=== PATIENT | female | born 1955 | race Caucasian/White ===

== ENCOUNTER 2017-01-28 18:35 | Inpatient (IN) ==
[~2017-01-28 18:35] MED LIST: LEXISCAN ONE
--- NOTE | 2017-01-28 19:44 | PROVIDER DOCUMENTATION ---
HPI-Chest Pain - General Chief Complaint: Chest Pain Stated Complaint: chest pain Time Seen by Provider: 01/28/17 20:00 Source: patient Allergies/Adverse Reactions: Patient Allergies Allergy/AdvReac Type Severity Reaction Status Date / Time Sulfa (Sulfonamide Allergy Mild SWELLING Verified 01/28/17 19:18 Antibiotics) haloperidol [From Haldol] AdvReac Severe Unknown Verified 01/28/17 19:18 ibuprofen AdvReac Mild NAUSEA Verified 01/28/17 19:18 Home Medications: Home Medication List Medication Instructions Recorded Confirmed Last Taken Type Benztropine [Cogentin] 1 mg PO TID #0 tablet MDD 3 mg 12/29/14 01/18/17 08:00 Rx Clotrimazole 1% Cream [Lotrimin 1% 1 applicatn TOP BID #0 12/29/14 01/18/17 08:00 Rx Cream] Furosemide 20 mg PO DAILY #0 MDD 20 mg 12/29/14 01/18/17 01/18/17 08:00 Rx 20mg Fluticasone 50 Mcg Nasal [place] 50 mcg INH DAILY 02/17/16 01/18/17 01/18/17 08: 00 History [Flonase] Losartan Potassium 100 mg PO DAILY MDD 100 mg 02/17/16 01/18/17 01/18/17 08:00 History 100mg Metformin HCl 1,000 mg PO BID MDD 1000 mg 02/17/16 01/18/17 01/18/17 08:00 History Metoprolol [Lopressor] 50 mg PO BID MDD 100 mg 02/17/16 01/18/17 01/18/17 08:00 History Duloxetine HCl [Cymbalta] 60 mg PO DAILY 12/18/16 01/18/17 01/18/17 08:00 History Fluphenazine [Prolixin] 2.5 mg PO HS 12/18/16 01/18/17 01/17/17 20:00 History Gemfibrozil 600 mg PO BID AC 12/18/16 01/18/17 01/18/17 08:00 History Loratadine [Children's 10 mg PO DAILY 12/18/16 01/18/17 01/18/17 08:00 History Clear-Atadine] 10mg Mirtazapine [Remeron] 30 mg PO QHS 12/18/16 01/18/17 01/17/17 20:00 History Pantoprazole Sodium 40 mg PO DAILY@0700 12/18/16 01/18/17 01/18/17 08:00 History - History of Present Illness-CP Nature of Presenting Problem: Patient is a 61 yrs old lady who has come with chest pain . She states that she has been having pain for a little while. It started in the middle of her chest and radiating to her left arm . It is 6-7/10 in intensity . Aggravated by moving . No particular relieving factor. Associated with some shortness of breath and headache as well.No N/V . No abd pain . No dizziness or lightheadedness. No other particular complaints. Location: reports: substernal, central Chest Pain Radiation: reports: arms Quality of Pain: reports: dull, pressure Severity in ED: moderate Onset/Duration: abrupt, 1-3 hours ago Timing: improving Context/Activities at Onset: reports: light activity Modifying Factors: improves with: analgesics Associated Symptoms: reports: headache, shortness of breath Review of Systems - Adult - REVIEW OF SYSTEMS - ADULT Constitutional: reports: no symptoms reported Eyes: reports: no symptoms reported Ears, Nose, Mouth & Throat: reports: no symptoms reported Cardiovascular: reports: see HPI Respiratory: reports: no symptoms reported Gastrointestinal: reports: no symptoms reported Genitourinary: reports: no symptoms reported Musculoskeletal: reports: no symptoms reported Integumentary: reports: no symptoms reported Neurological: reports: no symptoms reported Psychiatric: reports: no symptoms reported Endocrine: reports: no symptoms reported Past History - Adult - PAST MEDICAL HISTORY-ADULT Review of Records: reports: Old Records Reviewed, Nursing Assessment Review Major Childhood Illnesses: reports: denies history Cardiovascular: reports: HTN, SC Respiratory: reports: asthma Gastrointestinal: reports: denies history Obstetrical/Gynecological: reports: denies history Genitourinary: reports: denies history Musculoskeletal: reports: denies history Neurological: reports: CVA Psychiatric: reports: anxiety Endocrine/Immune: reports: cancer (BREAST CANCER), Diabetes, thyroid disorder Other Conditions: reports: denies history - PRIOR SURGERIES/PROCEDURES Surgical/Procedure History: reports: cholecystectomy, hysterectomy - IMMUNIZATION STATUS Childhood Immunizations: See Nurse Assessment Flu Vaccine: See Nurse Assessment - FAMILY HISTORY Family History: reviewed, not pertinent - SOCIAL HISTORY Smoking: denies Substance Use: none/never Alcohol Use Frequency: never Physical Exam-General - CONSTITUTIONAL General Appearance: mild distress - EYES Eyes: PERRL/EOMI - HEAD, EARS, NOSE, MOUTH & THROAT HENMT: normocephalic/atraumatic, moist mucous membranes - NECK Neck: non-tender, full range of motion - RESPIRATORY Respiratory: chest non-tender, lungs clear, normal breath sounds - CARDIOVASCULAR Cardiovascular: normal peripheral pulses, regular rate, rhythm, no edema - GASTROINTESTINAL (ABDOMEN) Abdominal Exam: non tender, soft, no organomegaly - LYMPHATIC Lymphatic: no adenopathy - MUSCULOSKELETAL Back Exam: normal inspection Extremity: normal range of motion - SKIN Integumentary: normal color, warm/dry - NEUROLOGIC Neurologic: grossly normal, no motor/sensory deficits - PSYCHIATRIC Psych/Mental Status: normal mood/affect, normal thought content, normal thought process, oriented x 3 Progress - PLAN OF CARE/RESULTS Progress/Plan/Lab Results: Vital Signs - 8 hr 01/28/17 18:35 01/28/17 20:09 Temperature 97.1 F L Pulse Rate 88 84 Respiratory Rate 18 24 Blood Pressure 153/109 159/97 O2 Sat by Pulse Oximetry 96 97 Laboratory Results - last 24 hr 01/28/17 01/28/17 01/28/17 19:00 19:00 19:00 WBC 8.26 RBC 3.91 L Hgb 11.7 L Hct 33.6 L MCV 85.9 MCH 29.9 MCHC 34.8 RDW Std Deviation 13.7 Plt Count 267 MPV 11.8 H Immature Gran % (Auto) 0.1 Neut % (Auto) 48.2 Lymph % (Auto) 41.4 [place] % (Auto) 7.7 Eos % (Auto) 2.2 Baso % (Auto) 0.4 Immature Gran # (Auto) 0.01 Neut # (Auto) 3.98 Lymph # (Auto) 3.42 H [place] # (Auto) 0.64 H Eos # (Auto) 0.18 Baso # (Auto) 0.03 Sodium 128 L Potassium 4.9 Chloride 92 L Carbon Dioxide 21 L Anion Gap 16 BUN 22 Creatinine 0.7 Estimated GFR/1.73 m2 > 60 BUN/Creatinine Ratio 31 Glucose 181 H Calculated Osmolality 265 Calcium 9.3 Total Bilirubin 0.20 AST 46 H ALT 27 Alkaline Phosphatase 79 Troponin T < 0.010 Trc-S-Xlhmjasnnqu Pept Total Protein 6.8 Albumin 4.3 Globulin 3.0 Albumin/Globulin Ratio 2.0 01/28/17 19:00 WBC RBC Hgb Hct MCV MCH MCHC RDW Std Deviation Plt Count MPV Immature Gran % (Auto) Neut % (Auto) Lymph % (Auto) [place] % (Auto) Eos % (Auto) Baso % (Auto) Immature Gran # (Auto) Neut # (Auto) Lymph # (Auto) [place] # (Auto) Eos # (Auto) Baso # (Auto) Sodium Potassium Chloride Carbon Dioxide Anion Gap BUN Creatinine Estimated GFR/1.73 m2 BUN/Creatinine Ratio Glucose Calculated Osmolality Calcium Total Bilirubin AST ALT Alkaline Phosphatase Troponin T [id number] Pept 63 Total Protein Albumin Globulin Albumin/Globulin Ratio Orders Category Date Time Status Fluid restrictions ____ ml/day DIRECTED Care 01/28/17 22:15 Active BNP [PRO B-NATRIURETIC PEPTIDE] Stat Lab 01/28/17 19:00 Completed CBC WITH ELECTRONIC DIFF [HEME] Stat Lab 01/28/17 19:00 Completed CMP [COMPREHENSIVE METABOLIC PANEL] [CHEM] Stat Lab 01/28/17 19:00 Completed TROPONIN T Stat Lab 01/28/17 19:00 Completed UR OSMOLALITY [CHEM] Stat Lab 01/28/17 19:49 Received UR POTASSIUM [URCHEM] Stat Lab 01/28/17 22:12 Uncollected EKG [EKG] Stat Ther 01/28/17 19:42 Draft No acute finding on EKG. Troponin and BNP wnl . Due to her history of CAD , she needs to get further cardiac work up before discharge. Also has low Na. Getting Urine electrolytes.Putting her on Fluid restriction for now. Discussed with Dr. Mccain the Hospitalist and he has kindly agreed for admission. Result Diagrams: 01/28/17 19:00 01/28/17 19:00 Departure - Departure Date of Disposition Decision: 01/28/17 Time of Disposition Decision: 22:28 DIAGNOSIS: Chest pain, Hyponatremia Disposition: ADMITTED INPATIENT 09 Certified Medical Emergency: Emergent Condition: Stable Referrals and Follow-Ups: None,PCP [Primary Care Provider] - - Critical Care Note This patient required my direct & personal management of CC.: No Attestation - Physician/ KELLE Attestation Patient care was provided by Advanced Practice Provider:: No The physician spent face to face time with patient:: Yes Advanced Practice Provider documentation review:: Supervising physician onsite and consulted in the evaluation and care of this patient. The physician did have a face to face encounter with the patient.
[2017-01-28 20:21] LABS: MANUAL DIFF NEEDED? NO
[2017-01-28 20:26] LABS: BASO% 0.4 % (0.0-0.8); EOS# 0.18 X1000 (0.0-0.7); EOS% 2.2 % (0.0-10.0); HEMATOCRIT 33.6 % (37.0-47.0); HEMOGLOBIN 11.7 g/dL (12.0-16.0); IMM GRAN# 0.01 X1000 (0.0-0.04); IMM GRAN% 0.1 % (0.0-0.5); LYMPH# 3.42 X1000 (1.2-3.4); LYMPH% 41.4 % (20.5-51.1); MCH 29.9 PG (27-31); MCHC 34.8 g/dL (33-37); MCV 85.9 FL (81-99); MONO# 0.64 X1000 (0.11-0.59); MONO% 7.7 % (1.7-9.3); MPV 11.8 FL (7.4-10.4); NEUT% 48.2 % (42.2-75.2); PLT 267 X1000 (130-400); RBC 3.91 XMIL (4.2-5.4)
[2017-01-28 20:38] LABS: AGAP 16; ALBUMIN 4.3 g/dL (3.5-5.0); ALKALINE PHOSPHATASE 79 U/L (32-104); BUN 22 mg/dL (8-22); CALCIUM 9.3 mg/dL (8.8-10.2); CHLORIDE 92 mmol/L (98-107); COSMO 265; GOT 46 U/L (10-30); GPT 27 U/L (10-36); POTASSIUM 4.9 mmol/L (3.5-5.1); SODIUM 128 mmol/L (136-145); TCO2 21 mmol/L (25-35); TOTAL PROTEIN 6.8 g/dL (6.3-8.3)
--- NOTE | 2017-01-28 22:15 | EKG Report ---
Test Performed on : 01/28/2017 7:59:12 PM Test Reason : CP Blood Pressure : / mmHG Vent. Rate : 085 BPM Atrial Rate : 085 BPM P-R Int : 196 ms QRS Dur : 084 ms QT Int : 368 ms P-R-T Axes : 031 -15 049 degrees QTc Int : 437 ms Normal sinus rhythm. Inferior infarct , age undetermined Anteroseptal infarct (cited on or before 23-JAN-2017) Abnormal ECG When compared with ECG of 28-JAN-2017 15:46, (Unconfirmed) Inferior infarct is now present Questionable change in initial forces of Anterior leads Unconfirmed Result
[2017-01-28] MEDS ORDERED: MORPHINE IV PRN (22:39)
--- NOTE | 2017-01-29 09:08 | HISTORY AND PHYSICAL ---
PRIMARY CARE PHYSICIAN: Dr. Jolene Aguiar. CHIEF COMPLAINT: Chest pain. HISTORY OF PRESENTING ILLNESS: This is a 61-year-old female who presents to [facility] ER with complaints of chest pain substernal that radiated to her left arm. Worse with movement. States she has felt short of breath and also had a headache. Workup in the ER showed cardiac enzymes x1 set was negative. Sodium was 128 with a chloride of 92. EKG showed normal sinus rhythm at 85 but she was admitted for further evaluation and treatment. PAST MEDICAL HISTORY: 1. Schizoaffective disorder, bipolar. 2. Posttraumatic stress disorder. 3. Diabetes type 2. 4. Atrial fibrillation. 5. Diabetic neuropathy. 6. Congestive heart failure. 7. GERD. 8. A congenital heart defect. 9. Left breast cancer. 10. Hypertension. 11. Sleep apnea. PAST SURGICAL HISTORY: 1. Left breast lumpectomy. 2. Hysterectomy. 3. Cholecystectomy. 4. Melanoma removed from her left biceps. FAMILY HISTORY: 1. Hypertension. 2. Diabetes. 3. Heart disease. 4. Cancer. SOCIAL HISTORY: She currently resides at a snf in [place]. Denied any tobacco, alcohol, or illicit drug use. ALLERGIES: 1. Sulfa. 2. Haloperidol. 3. Ibuprofen. HOME MEDICATIONS: A current list will be obtained and we will restart as appropriate. LABORATORY DATA: Showed a white blood cell count of 8.26, hemoglobin 11.7, hematocrit 33.6, platelets 267,000. Sodium 128, potassium 4.9, chloride 92, CO2 21, BUN of 22 with a creatinine of 0.7, glucose of 181. A troponin of less than 0.010, proBNP of 63. EKG showed normal sinus rhythm at 85. REVIEW OF SYSTEMS: She was positive for chest pain radiating to her left arm, shortness of breath and a headache. Otherwise negative review of systems. PHYSICAL EXAMINATION: On arrival, she had a temperature of 97.1 degrees, a pulse of 88, respirations 18, blood pressure 153/109, saturating 96% on room air. GENERAL: This is a 61-year-old female who is lying in the bed and answers questions appropriately. HEENT: Normocephalic and atraumatic. The pupils are equal, round, reactive to light. The extraocular movements are intact. The oropharynx and nares are clear. NECK: Supple. LUNGS: Clear to auscultation bilaterally with equal lung expansion and chest wall movement. HEART: With regular rate and rhythm. No murmurs, rubs, or gallops. ABDOMEN: Soft, nontender, nondistended. Bowel sounds are present x4 quadrants. EXTREMITIES: No clubbing, cyanosis, or edema. NEUROLOGICAL: The cranial nerves 2-12 appear grossly intact. ASSESSMENT: 1. Chest pain. 2. Hyponatremia. 3. Hypertension. 4. Diabetes type 2. PLAN: She was admitted to the medical unit at [facility], placed on telemetry. Placed on a 1200 mL fluid restriction. We are checking a CBC, CMP, CK profile and a troponin and a thyroid this morning. We are also checking a urine osmolality and urine potassium. She was given morphine 2 mg IV q.2 hours p[address]r.n. We will place on a diabetic diet. Dictated by KASSANDRA Kothari for Dell Adkins MD cc: KASSANDRA Kothari MD Faye Wilson, MD
[2017-01-29 09:30] LABS: HEMATOCRIT 33.6 % (37.0-47.0); HEMOGLOBIN 11.7 g/dL (12.0-16.0); MCH 29.8 PG (27-31); MCHC 34.8 g/dL (33-37); MCV 85.5 FL (81-99); RBC 3.93 XMIL (4.2-5.4)
[2017-01-29 09:50] LABS: AGAP 15; ALBUMIN 4.1 g/dL (3.5-5.0); ALKALINE PHOSPHATASE 72 U/L (32-104); BUN 21 mg/dL (8-22); CALCIUM 9.6 mg/dL (8.8-10.2); CHLORIDE 98 mmol/L (98-107); COSMO 278; GOT 56 U/L (10-30); GPT 28 U/L (10-36); MAGNESIUM 1.6 mg/dL (1.5-2.7); POTASSIUM 4.9 mmol/L (3.5-5.1); SODIUM 135 mmol/L (136-145); TCO2 22 mmol/L (25-35); TOTAL PROTEIN 7.2 g/dL (6.3-8.3)
[2017-01-29] MEDS ORDERED: APRESOLINE IV PRN (13:17)
[2017-01-29] MEDS: COZAAR PO SCH (13:31)
[2017-01-29] MEDS: MORPHINE IV PRN ×3 (13:32→21:22)
--- NOTE | 2017-01-29 13:47 | EKG Report ---
Test Performed on : 01/29/2017 1:21:59 PM Test Reason : chest pain Blood Pressure : / mmHG Vent. Rate : 093 BPM Atrial Rate : 093 BPM P-R Int : 188 ms QRS Dur : 092 ms QT Int : 352 ms P-R-T Axes : 000 -24 149 degrees QTc Int : 437 ms Normal sinus rhythm. Inferior infarct (cited on or before 28-JAN-2017) Anterior infarct (cited on or before 23-JAN-2017) Abnormal ECG When compared with ECG of 28-JAN-2017 19:59, Nonspecific T wave abnormality now evident in Inferior leads Confirmed by Jonas Galvan MD ([id number]) on 02/07/2017 6:54:28 PM
[2017-01-29] MEDS: HUMALOG DOSE (PARKWAY) SUBQ SCH (21:09)
[2017-01-30] MEDS: MORPHINE IV PRN (01:42)
--- NOTE | 2017-01-30 03:40 | PROGRESS NOTE ---
DATE: 01/28/2017 ADDENDUM: Plan of care discussed with nurse practitioner. Please see full note. Patient presented with chest pain. She has no idea when her last stress test was. Pain radiated to her left shoulder. Currently has resolved. We will complete rule out for OR and will consider stress testing. cc: Dell Adkins MD
[2017-01-30] MEDS: HUMALOG DOSE (PARKWAY) SUBQ SCH ×4 (06:55→21:19)
[2017-01-30] MEDS: COZAAR PO SCH (08:27)
[2017-01-30] MEDS ORDERED: ZOFRAN IV PRN ×2 (11:33→11:37)
[2017-01-30] MEDS ORDERED: CYMBALTA PO ONE (11:38)
[2017-01-30] MEDS ORDERED: PHENERGAN IV ONE (11:59)
[2017-01-30] MEDS ORDERED: SODIUM CHLORIDE 0.9% INJ ONE (11:59)
[2017-01-30] MEDS: TYLENOL PO PRN (12:56)
[2017-01-30] MEDS: COGENTIN PO SCH ×2 (12:57→17:02)
--- NOTE | 2017-01-30 13:52 | EKG Report ---
Test Performed on : 01/30/2017 11:24:59 AM Test Reason : cp Blood Pressure : / mmHG Vent. Rate : 084 BPM Atrial Rate : 084 BPM P-R Int : 192 ms QRS Dur : 094 ms QT Int : 378 ms P-R-T Axes : 044 -04 050 degrees QTc Int : 446 ms Normal sinus rhythm. Possible Anterior infarct (cited on or before 23-JAN-2017) Abnormal ECG When compared with ECG of 29-JAN-2017 13:21, (Unconfirmed) Criteria for Inferior infarct are no longer present Nonspecific T wave abnormality no longer evident in Inferior leads Confirmed by Jonas Galvan MD ([id number]) on 02/07/2017 6:54:46 PM
--- NOTE | 2017-01-30 15:45 | PROGRESS NOTE ---
DATE: 01/30/2017 SUBJECTIVE: The patient has no focal complaints. OBJECTIVE: Vital signs: Blood pressure 182/83, heart rate of 92, respiratory rate 18, temperature 97.5 degrees, 94% on room air. Cardiovascular: Regular rate and rhythm, but tachycardic. Pulmonary: Bilateral breath sounds. Clear to auscultation. Gastrointestinal: Soft, nontender, nondistended. Bowel sounds are positive. LABORATORY DATA: Nothing new today. Sugar was 212. PROBLEM LIST: 1. Chest pain is very atypical, but she also has a complicated psychiatric history, so I am not sure if she is elaborating her chest pain. She does have risk factors, atrial fibrillation, type 2 diabetes, CHF by report and a "hole" in her heart. So, we attempted to do a stress test today, but she had eaten and taken coffee, so we were unable to complete it. So, we did a resting, which I think was unremarkable. I am waiting. She had a nuclear stress test in 2012, which was negative. So, I am going to get an echo and cardiology opinion. If they feel she is stable for discharge and outpatient follow up, we will pursue that. If not, then we will have to keep her here until to get the stress portion of her stress test because of the field tech is not available tomorrow. 2. Diabetes. Continue regular medications. 3. Schizoaffective disorder. She is in the process of being evaluated by Jean Villatoro for her psychiatric issues. We will release her back, once we have completed her cardiac workup. cc: Jose Hooker MD
[2017-01-30] MEDS: GLUCOPHAGE PO SCH (17:01)
[2017-01-30] MEDS: LOPID PO SCH (17:02)
--- NOTE | 2017-01-30 19:51 | CONSULTATION ---
DATE OF CONSULTATION: 01/30/2017 IMPRESSION: 1. Chest pain for extended duration with normal cardiac enzymes. Chest discomfort, predominantly atypical for myocardial ischemia and overall clinical presentation. Very atypical for myocardial ischemia. 2. Reported history of some sort of intracardiac septal defect. Details not available. 3. Schizoaffective disorder. 4. Type 2 diabetes mellitus with associated diabetic neuropathy. 5. Previous atrial fibrillation. 6. Gastroesophageal reflux disease. 7. Hypertension. 8. Status post left breast lumpectomy for breast cancer. 9. Sleep apnea. RECOMMENDATIONS: 1. Follow through with pharmacologic myocardial perfusion imaging. 2. Echocardiography. 3. Alternative diagnostic evaluation might also be achieved with cardiac/coronary CT angiography. HISTORY: This 61-year-old, white female with past history of chronic recurrent chest pain, schizoaffective disorder, type 2 diabetes mellitus, hypertension, and "hole in the heart" was admitted on transfer from [facility] for further evaluation of chest pain. She describes near constant dull/heaviness in the left chest. Discomfort can last several hours at a time and then comes and goes. Her current episode began Sunday and has not stopped. Cardiac enzymes and ECGs have been negative. She relates that she has had recurrent chest discomfort for many years. She had previous cardiac catheterization/coronary angiography more than 10 years ago which was negative. She last had a stress study a couple years ago which was negative. 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 She had been treated with abdomen for years and a month ago, this was switched to Klonopin. PAST MEDICAL HISTORY: 1. Chronic recurrent chest pain. 2. Type 2 diabetes mellitus. 3. Hypertension. 4. Hypercholesterolemia. 5. Diabetic neuropathy. 6. Gastroesophageal reflux disease. 7. Schizoaffective disorder. 8. History of breast cancer and left breast lumpectomy. 9. Reported history of "hole in the heart." 10. Previous episode of atrial fibrillation. 11. Sleep apnea. 12. Obesity. PAST SURGICAL HISTORY: Includes left breast lumpectomy, partial hysterectomy, cholecystectomy and removal of melanoma from left upper arm. She is also status post cataract surgery. ALLERGIES: She is allergic or intolerant to sulfa, ibuprofen and Haldol. The latter causes her to "stiffen up." MEDICATIONS: As listed. SOCIAL HISTORY: She currently resides in a intermediate. She has remote history of smoking perhaps for about 2 years many years ago. She does not use alcohol. FAMILY HISTORY: Positive for unspecified heart disease, hypertension. Diabetes mellitus and cancer. REVIEW OF SYSTEMS: Pulmonary: Negative. Gastrointestinal: Negative. Constitutional: Negative. Remainder of review of systems negative/noncontributory beyond history of present illness with 14 total systems reviewed. PHYSICAL EXAMINATION: General: This is an obese, older white female, who appears somewhat anxious. She is in no respiratory distress. Vital signs: Blood pressure 182/83, heart rate 92 and regular. HEENT: Extraocular movements intact. Mucous membranes moist. Neck: Supple. No jugular venous distention. No carotid bruits. Chest: Clear to auscultation. Cardiac Exam: Reveals a regular rate and rhythm with grade 2/6 systolic murmur at the left upper sternal border. No gallop could be appreciated. Abdomen: Soft, nontender. Bowel sounds are normal. Extremities: Without edema. Neurologic Exam: Reveals her to be alert, fully oriented. Speech is fluent. She moves all 4 extremities equally well. Skin: Warm and dry. Psychiatric: Reveals her to be somewhat anxious. DIAGNOSTIC STUDIES: ECG demonstrates sinus rhythm, cannot rule out inferior infarct of undetermined age and cannot rule out anterior infarct of undetermined age. LABORATORY DATA: Includes initial troponin less than 0.01. Followup troponin less than 0.01. cc: MD Jose Delgadillo MD
[2017-01-30] MEDS: LOTRIMIN 1% CREAM TOP SCH (21:14)
[2017-01-30] MEDS: PROLIXIN PO SCH (21:14)
[2017-01-30] MEDS: LOPRESSOR PO SCH (21:16)
[2017-01-30] MEDS: REMERON PO SCH (21:16)
[2017-01-31 06:10] LABS: HEMATOCRIT 34.5 % (37.0-47.0); HEMOGLOBIN 11.5 g/dL (12.0-16.0); MCHC 33.3 g/dL (33-37); MCV 86.9 FL (81-99); MPV 11.1 FL (7.4-10.4); RBC 3.97 XMIL (4.2-5.4)
[2017-01-31] MEDS: HUMALOG DOSE (PARKWAY) SUBQ SCH ×4 (06:19→20:18)
[2017-01-31 06:31] LABS: AGAP 11; BUN 14 mg/dL (8-22); CALCIUM 9.9 mg/dL (8.8-10.2); CHLORIDE 97 mmol/L (98-107); COSMO 277; SODIUM 136 mmol/L (136-145); TCO2 28 mmol/L (25-35)
[2017-01-31] MEDS: PROTONIX PO SCH (07:07)
[2017-01-31] MEDS: LOPID PO SCH ×2 (07:08→17:04)
[2017-01-31] MEDS: GLUCOPHAGE PO SCH ×2 (07:45→17:03)
[2017-01-31] MEDS: GLUCOTROL XL PO SCH (07:46)
[2017-01-31] MEDS: LOPRESSOR PO SCH ×2 (08:00→20:18)
[2017-01-31] MEDS ORDERED: LOSARTAN POTASSIUM 100 MG PO SCH (09:00)
[2017-01-31] MEDS: CYMBALTA PO SCH (09:07)
[2017-01-31] MEDS: CLARITIN PO SCH (09:08)
[2017-01-31] MEDS: COLACE PO SCH (09:08)
[2017-01-31] MEDS: COGENTIN PO SCH ×3 (09:08→17:04)
[2017-01-31] MEDS: COZAAR PO SCH (09:08)
[2017-01-31] MEDS: FLONASE NAS SCH (09:09)
[2017-01-31] MEDS ORDERED: LOPRESSOR PO ONE (09:15)
[2017-01-31] MEDS ORDERED: CARDIZEM ONE (11:18)
[2017-01-31] MEDS: LOTRIMIN 1% CREAM TOP SCH ×2 (12:17→20:19)
[2017-01-31 12:37] LABS: HEPATITIS PROFILE ACUTE SEE COMMENTS
[2017-01-31] MEDS: LASIX PO SCH (13:37)
[2017-01-31] MEDS: TYLENOL PO PRN (14:27)
--- NOTE | 2017-01-31 15:52 | PROGRESS NOTE ---
DATE: 01/31/2017 SUBJECTIVE: The patient is chest pain-free today, but she still says she may have harmful thoughts. No shortness of breath. OBJECTIVE: Blood pressure 132/58, heart rate of 80, respiratory rate 18, temperature 97.7 degrees, 93% on room air. Cardiovascular: Regular rate and rhythm. Pulmonary: Bilateral breath sounds. Clear to auscultation. GI: Soft, nontender, nondistended. Bowel sounds are positive. LABORATORY DATA: White count 8, hemoglobin and hematocrit 11 and 34. Platelets 247,000. Basic was normal. PROBLEM LIST: 1. Chest pain which is very atypical, but she does have risk factors including diabetes. 2. Reported history of atrial fibrillation and persistent chest pain. I appreciate Dr. Shabazz's assistance. We pursued a CT angiogram today because stress was unavailable, and we could not complete it because we could not get her heart rate down low enough. She was given 100 of Toprol, IV Lopressor, and we could not get her heart rate stable enough. So, we will complete her stress test tomorrow and go from there. 3. Schizoaffective is not controlled. We will have to get Jean Villatoro to re-evaluate her prior to discharge. 4. Atrial fibrillation appears to be rate controlled. She is on Lopressor 50 b.i.d. We may have to push that dose a little bit. She still is a little bit on the tachycardic side. Unsure why she is taking Lopressor 50 b.i.d. I am going to change her to Toprol; we will do 75 daily and follow. DISPOSITION: Pending her clinical workup. We will continue to monitor. cc: Jose Hooker MD
--- NOTE | 2017-01-31 16:42 | EKG Report ---
Test Performed on : 01/31/2017 3:23:35 PM Test Reason : Rhythm Verification Blood Pressure : / mmHG Vent. Rate : 078 BPM Atrial Rate : 078 BPM P-R Int : 208 ms QRS Dur : 086 ms QT Int : 376 ms P-R-T Axes : 037 004 052 degrees QTc Int : 428 ms Normal sinus rhythm. Septal infarct (cited on or before 23-JAN-2017) Abnormal ECG When compared with ECG of 30-JAN-2017 11:24, (Unconfirmed) No significant change was found Confirmed by Jonas Galvan MD ([id number]) on 02/07/2017 7:03:05 PM
[2017-01-31] MEDS: REMERON PO SCH (20:18)
[2017-01-31] MEDS: PROLIXIN PO SCH (20:19)
--- NOTE | 2017-02-01 05:16 | EKG Report ---
Test Performed on : 02/01/2017 04:46:31 AM Test Reason : cp Blood Pressure : / mmHG Vent. Rate : 076 BPM Atrial Rate : 076 BPM P-R Int : 200 ms QRS Dur : 090 ms QT Int : 394 ms P-R-T Axes : 056 -17 057 degrees QTc Int : 443 ms Normal sinus rhythm. Possible Anterior infarct (cited on or before 23-JAN-2017) Abnormal ECG When compared with ECG of 31-JAN-2017 15:23, (Unconfirmed) Serial changes of Anterior infarct present Unconfirmed Result
[2017-02-01] MEDS: PROTONIX PO SCH (06:02)
[2017-02-01] MEDS: HUMALOG DOSE (PARKWAY) SUBQ SCH ×3 (06:14→16:50)
[2017-02-01] MEDS ORDERED: TOPROL XL PO SCH (09:00)
[2017-02-01] MEDS: LOPID PO SCH ×2 (11:39→16:50)
[2017-02-01] MEDS: GLUCOPHAGE PO SCH ×2 (11:42→16:50)
[2017-02-01] MEDS: CLARITIN PO SCH (11:44)
[2017-02-01] MEDS: GLUCOTROL XL PO SCH (11:44)
[2017-02-01] MEDS: COGENTIN PO SCH ×3 (11:45→16:50)
[2017-02-01] MEDS: LASIX PO SCH (11:46)
[2017-02-01] MEDS: COZAAR PO SCH (11:46)
[2017-02-01] MEDS: CYMBALTA PO SCH (11:46)
[2017-02-01] MEDS: COLACE PO SCH (11:46)
[2017-02-01] MEDS: LOTRIMIN 1% CREAM TOP SCH (11:55)
[2017-02-01] MEDS: FLONASE NAS SCH (11:55)
[2017-02-01] MEDS ORDERED: LOPRESSOR ONE (12:04)
[2017-02-01 13:25] VITALS: BP 142/68
--- NOTE | 2017-02-01 14:45 | Diag Imaging Result Document ---
PROCEDURE NAME: MYOCARDIAL PERF SCAN, STR/REST - 01/30/2017 LEXISCAN CARDIOLITE STRESS TEST: Lexiscan done by Dr. Hooker, dictated separately. Please see detailed stress report. Following Lexiscan infusion, Cardiolite was injected. 31.9 mCi of Cardiolite was injected for the rest phase, 32.1 mCi of Cardiolite was injected for the stress phase. Gated SPECT images were obtained in standard views. Images revealed chest wall attenuation, diaphragmatic attenuation. Normal left ventricular cavity size. Normal left ventricular myocardial perfusion. Left ventricular ejection fraction 84%. CONCLUSION: 1. Normal myocardial perfusion. 2. Left ventricular ejection fraction 84%. cc: MD Jose Ayala MD
--- NOTE | 2017-02-01 16:27 | ECHO REPORT ---
ORDER DATE: 01/30/2017 INTERPRETING PHYSICIAN: Dr. Job Meier ECHOCARDIOGRAPHIC MEASUREMENTS: Interventricular septum: 1.4 cm. Left ventricular posterior wall: 1.1 cm. Diastolic diameter: 4.7 cm. Left atrium: 3 cm. Aortic root: 3.2 cm. SUMMARY OF THE 2-DIMENSIONAL IMAGIN. There is mild left atrial enlargement. Normal left ventricular cavity size. Estimated ejection fraction of 60%. 2. Aortic valve leaflets are trileaflet. Mitral valve was normal. Tricuspid valve was normal. Pulmonic valve was normal. There is trace to mild mitral regurgitation. Mild tricuspid regurgitation. 3. There is no aortic stenosis. There is trace to mild aortic regurgitation. 4. There is no pericardial effusion or obvious intracardiac mass or thrombus seen. 5. Interatrial septum was mobile. 6. Saline contrast study was positive for likely PFO. cc: MD Shelton Ayala MD Alexis R. Penot, MD
--- NOTE | 2017-02-06 11:29 | Diag Imaging Result Doc PS360 ---
EXAM: CT HEART WITH CALCIUM SCORING - 01/31/2017 HISTORY: chest pain TECHNIQUE: CT heart with calcium scoring COMPARISON: Chest radiographs of 02/18/2016 and 01/26/2014 FINDINGS: Exam is submitted to [place] for dictation on 02/06/2017. The total calcium score 0.0. This indicates no identifiable coronary artery calcification. There is chronic elevation of the right hemidiaphragm. The visualized lungs near the heart show associated mild subsegmental atelectasis or scarring at the right base. The visualized lungs near the heart otherwise appear clear. There are apparent calcifications in bilateral bronchial berger which are likely chronic. The visualized mediastinum and upper most abdomen near the heart are otherwise unremarkable. IMPRESSION: Total calcium score of 0.0. This indicates no identifiable coronary artery calcification. Chronic elevation of right hemidiaphragm associated mild right basilar atelectasis noted. Electronically signed by Steven Holt 02/06/2017 11:26 AM
--- NOTE | 2017-03-25 15:29 | DISCHARGE SUMMARY ---
ADMISSION DATE: 01/28/2017 DISCHARGE DATE: 02/01/2017 DISCHARGE DIAGNOSES: 1. Atypical chest pain. 2. Atrial fibrillation. 3. Schizoaffective disorder. ADMISSION DIAGNOSES: 1. Chest pain. 2. Schizoaffective disorder. HOSPITAL COURSE: Briefly, this is a 61-year-old female with history of schizoaffective, PTSD, diabetes, atrial fibrillation, CHF, who presents with chest pain atypical in nature. She underwent myocardial perfusion imaging which showed normal EF, normal perfusion. That was on the 01/30. Her echo showed EF of 60% and was otherwise normal, and there was likely at PFO. We attempted to get a CT angiogram, but we could not because the patient was not relaxed enough, we could never get her heart rate to be controlled. Her myocardial perfusion imaging was negative, so she was discharged on the 02/01. DISCHARGE MEDICATIONS: Cogentin 1 b.i.d., Wellbutrin 100 b.i.d., clotrimazole, Lasix, losartan, metoprolol 50 b.i.d., metformin 1 g b.i.d., fluticasone daily, mirtazapine 30 at bedtime, Protonix 40 daily, gemfibrozil 600 b.i.d., loratadine 10 daily, duloxetine 60 daily, fluphenazine 2.5, docusate 100 daily, glipizide 2.5 daily. DISCHARGE CONDITION: Stable. I think she was sent to [facility] for further management. cc: MD Jolene Coker MD
== END 2017-02-01 19:30 ==
LOC: P.ED 18:35 → P.MEDSURG 23:12 → SUATTDRO 23:12
PROVIDERS: ADMIT Internal Medicine; ATTEND Internal Medicine